=== PATIENT | male | born 1940 | race Caucasian/White ===

== ENCOUNTER 2017-05-16 15:58 | Emergency (ER) | payer MEDICARE, OTHER ==
[2013-11-18 10:44] VITALS: BMI 32.6
[~2017-05-16 15:58] MED LIST: BAYER CHEWABLE81 MG PO; HYDROCODONE-APA1 TAB PO; ISOSORBIDE DINI30 MG PO; MULTI-DAY VITAM1 TAB PO; ZESTORETIC 10/11 TAB PO
== END 2017-05-16 19:00 ==
LOC: D.ER 15:58
DX: M25.551 Pain in right hip (principal); I10 Essential (primary) hypertension; J44.9 Chronic obstructive pulmonary disease, unspecified; Z85.118 Personal history of other malignant neoplasm of bronchus and lung

== ENCOUNTER 2017-05-27 14:49 | Emergency (ER) | payer MEDICARE, OTHER ==
[2013-11-18 10:44] VITALS: BMI 32.6
[2017-05-27 16:01] LABS: BASOPHILS 0.1 % (0-2); EOSINOPHILS 0.5 % (0-7); HEMATOCRIT 44.6 % (42.0-54.0); HEMOGLOBIN 14.9 g/dL (13.5-17.5); IMMATURE GRANULOCYTES 1.6 % (0-5); LYMPHOCYTES 13.9 % (15-50); MCH 29.7 pg (26.0-34.0); MCHC 33.4 g/dL (31.0-37.0); MONOCYTES 9.9 % (2-11); RBC 5.01 10x6/uL (4.20-6.10); RDW 14.9 % (11.5-14.5); WBC 11.1 10x3/uL (4.8-10.8)
[2017-05-27 16:02] LABS: PLATELET COUNT 202 10x3/uL (130-400)
[2017-05-27 16:31] LABS: ALBUMIN 3.2 g/dL (3.4-5.0); ALKALINE PHOSPHATASE 70 U/L (46-116); ALT (SGPT) 30 U/L (10-68); BILIRUBIN - TOTAL 0.48 mg/dL (0.2-1.3); CALC OSMOLALITY 294 mosm/kg (275-300); CALCIUM 8.5 mg/dL (8.5-10.1); CARBON DIOXIDE 25.2 mmol/L (21.0-32.0); CHLORIDE - SERUM 105 mmol/L (98-107); CREATININE - SERUM 1.7 mg/dL (0.6-1.3); GLUCOSE 113 mg/dL (74-106); POTASSIUM - SERUM 4.4 mmol/L (3.5-5.1); PROTEIN - SERUM 6.2 g/dL (6.4-8.2); SODIUM 142 mmol/L (136-145); UREA NITROGEN 44 mg/dL (7-18); eGFR NON AFRICAN AMERICAN 42 mL/min (90-120)
[2017-05-27 16:47] LABS: CHOL - HDL RATIO 4.8 ratio (2.3-4.9); CHOLESTEROL, TOTAL 174 mg/dL (0-200); CKMB 1.8 U/L (0.0-3.6); CREATINE KINASE 52 UL (21-232); HDL CHOLESTEROL 36 mg/dL (32-96); LDL CHOLESTEROL 84 mg/dL (0-100); LDL-HDL RATIO 2.3 ratio (1.5-3.5); PRO BNP 6849 pg/mL (0-450); TRIGLYCERIDE 273 mg/dL (30-200); TROPONIN-I 0.035 ng/mL (0.000-0.060)
== END 2017-05-27 17:35 | disposition home or self-care (01) ==
LOC: D.ER 14:49
PROVIDERS: Emergency Medicine
DX: R07.9 Chest pain, unspecified (principal); I48.91 Unspecified atrial fibrillation; Z87.09 Personal history of other diseases of the respiratory system; Z85.118 Personal history of other malignant neoplasm of bronchus and lung; N28.9 Disorder of kidney and ureter, unspecified

== ENCOUNTER 2017-10-21 18:03 | Inpatient (IN) | payer MEDICARE, OTHER ==
[~2017-10-21] VITALS: Ht 182.9 cm; Wt 117.7 kg
--- NOTE | ~2017-10-21 | OP ---
PATIENT NAME: MISHEL VILLANUEVA MEDICAL RECORD: [id number] :40 LOCATION:D.M2 D.2109 ADMISSION DATE:10/21/17 SURGEON: MARLEE SCHUMACHER MD DATE OF OPERATION: 10/23/2017 DATE OF SERVICE: 10/23/2017 PROCEDURES: 1. Left heart catheterization. 2. Selective coronary angiography. 3. Left ventriculogram. 4. Attempted but failed PTCA stent RCA due to inability to cross the lesion with any wire. DESCRIPTION OF PROCEDURE IN DETAIL: After informed consent was obtained, after detailed description of risks, benefits as well as alternative therapies, the patient elected to proceed with angiogram and angioplasty. The right femoral area was prepped and draped in normal sterile fashion. The right femoral artery was cannulated via modified Seldinger technique with placement of 6-[place] sheath. All catheters exchanged through this sheath. FINDINGS: The left ventriculogram was performed in standard 30-degree JAEGER view, reveals global hypokinesis at all segments. Overall ejection fraction in the 30% range. SELECTIVE CORONARY ANGIOGRAPHY: 1. Left main is with no significant angiographic disease. 2. Left anterior descending has moderate diffuse disease throughout the entire course. 3. Left circumflex has moderate diffuse disease throughout its entire course. 4. Right coronary has aaau-zq-uhdpvune diffuse disease followed by what appears to be a chronic total occlusion in the mid vessel. ATTEMPTED PTCA STENT OF THE RCA: No wire including Choice PT extra support, Fielder, or Shinobi would cross this total occlusion in the mid vessel. OVERALL IMPRESSION: Severe diffuse disease of the left anterior descending and circumflex with chronic total occlusion of the right coronary artery. Medical management of the coronary artery disease, cardiomyopathy and cardiac risk factors. SEPARATE DICTATION DATE OF SERVICE: 10/23/2017 PROCEDURES: 1. Aortofemoral runoff. 2. Abdominal aortography. INDICATION: Claudication and peripheral vascular disease. PROCEDURE IN DETAIL: After informed consent was obtained and after a detailed description of the risks, benefits, as well as alternative therapies, the OPERATIVE REPORT [id number] MISHEL VILLANUEVA patient elected to proceed with aortofemoral runoff. FINDINGS: Abdominal aortography was performed. The catheter was pulled down for aortofemoral runoff. Abdominal aortography reveals no abdominal aortic aneurysm. No abdominal aortic disease, no dissection. RIGHT LEG: A. Iliac: The iliacs are totally occluded. This was replaced with an aortobifemoral graft that is widely patent. B. Femoral system: The deep femoral is widely patent. Superficial femoral was totally occluded in mid vessel. This reconstitutes into the popliteal from collaterals off the deep femoral system. C. Popliteal and infrapopliteal vessels: The popliteal is severely diffusely diseased. It appears that all of her popliteal disease vessels are diffusely diseased, patent only for a very short way, then totally occluded. LEFT LEG: A. Common iliac: The iliac system is closed, is replaced with an aortobifemoral graft that is patent. B. Femoral system: The deep femoral is widely patent. Superficial femoral was totally occluded throughout its entire course. The leg reconstitutes distally off of collaterals from the deep femoral system at the popliteal level. Popliteal appears to be patent for a short time and all the infrapopliteal vessels appear to be totally occluded. Distal leg is perfused by tracheal collaterals. OVERALL IMPRESSION: Wide patency of the aortobifemoral graft, but bilateral severe superficial femoral artery disease and severe infrapopliteal disease that is not amenable to surgical or transcatheter revascularization, only medical management. TRANSINT:[id number] Voice Confirmation ID: [id number] DOCUMENT ID: [id number] MARLEE SCHUMACHER MD at 1741 CC: [id number] DICTATION DATE: 10/23/17 0949 DIALER: 10/23/17 1206 ADM IN [facility] [address] [place] [address]
--- NOTE | ~2017-10-21 | HEMODYNAMI ---
PATIENT:MISHEL VILLANUEVA MEDICAL RECORD: [id number] : 40 LOCATION:[facility] D.2109 ADMISSION DATE: 10/21/17 Generatedon:10/23/20179:44 Patient name: MISHEL VILLANUEVA Patient #: [id number] SSN: : 1940 Date of study: 10/23/2017 Page: Of Hemodynamic Procedure Report Patient Data Patient Demographics Procedure consent was obtained First Name: MISHEL Gender: Male Last Name: RICH : 1940 [facility] Initial: A Age: 77 year(s) Patient #: [id number] Race: Unknown Additional ID: [id number] Contact details Address: [address] [place] [address] State: [place] City: [place] Zip code: [address] Admission Admission Data Admission Date: 10/21/2017 Admission Time: 20:40 Room #: D2109 Procedure Procedure Types Cath Procedure Diagnostic Procedure LHC LH w/Coronaries Sedation Charges Moderate Sedation up to 30 minutes Peripheral Cath Diagnostic Procedure Cath Peripheral Nzwdj-Jfiqidy-Vsl-Off Procedure Description Procedure Date Procedure Date: 10/23/2017 Procedure Start Time: 9:14 Procedure End Time: 9:43 Procedure Staff Name Function Andrew Mann MD Performing Physician Deyanira Deras RT Monitor Raúl Paige RN Nurse Fozia Husain RT Scrub Procedure Data Cath Procedure Fluoroscopy Diagnostic fluoroscopy Total fluoroscopy Time: 9.9 time: 9.9 min min Diagnostic fluoroscopy Total fluoroscopy dose: dose: 2245 mGy 2245 mGy Contrast Material Contrast Material Type Amount (ml) Isovue 300 177 Entry Location Entry Primary Successful Side Size Upsize Upsize Entry Closure Succes sful Closure Location (Fr) 1 (Fr) 2 (Fr) Remarks Device Remarks Femoral Right 5 Fr 6 Fr Exoseal artery Short Estimated blood loss: 5 ml Diagnostic catheters Device Type Used For End Catheter Placement MULTIPACK Pigtail 5 Fr Multi-vessel catheter Angiography MULTIPACK JL 4.0 5Fr Left Coronary catheter Angiography MULTIPACK 3DRC 5Fr Right Coronary catheter Angiography Procedure Complications No complications Procedure Medications Medication Administration Route Dosage Oxygen etCO2 Nasal cannula 2 l/min Heparin Flush Bag added to field 2 bags (1000units/500ml NS) 0.9% NaCl 100 ml/hr Fentanyl I.V. 50 mcg Versed I.V. 1 mg Fentanyl I.V. 50 mcg Versed I.V. 1 mg Fentanyl I.V. 50 mcg Fentanyl I.V. 50 mcg Heparin Bolus I.V. 5000 units Hemodynamics Rest Heart Rate: 93 (bpm) Pressure Samples Time Site Value (mmHg) Purpose Heart Use Rate(bpm) 9:20 LV 100/11,9 Snapshot 94 Snapshots Pre Cath Intra NCS Post Cath Vital Signs Time Heart Resp SPO2 etCO2 NIBP (mmHg) Rhythm Pain Sedation Rate (ipm) (%) (mmHg) Status Level (bpm) 8:21:00 97 17 95 0 137/99(123) NSR 0 (11) 10(A) , No pain 8:25:08 82 18 92 0 124/85(108) NSR 0 (11) 10(A) , No pain 8:29:09 90 17 93 0 125/93(114) NSR 0 (11) 10(A) , No pain 8:32:59 97 18 92 0 102/88(94) NSR 0 (11) 10(A) , No pain 8:36:52 81 17 93 0 122/99(108) NSR 0 (11) 10(A) , No pain 8:40:54 88 18 93 0 123/90(112) NSR 0 (11) 10(A) , No pain 8:44:58 82 18 93 0 112/85(100) NSR 0 (11) 10(A) , No pain 8:48:57 88 17 92 0 123/84(106) NSR 0 (11) 10(A) , No pain 8:52:59 100 19 93 0 111/94(99) NSR 0 (11) 10(A) , No pain 8:56:57 89 18 93 0 121/85(105) NSR 0 (11) 10(A) , No pain 9:00:58 86 18 93 0 118/92(112) NSR 0 (11) 10(A) , No pain 9:04:58 87 17 93 0 126/90(102) NSR 0 (11) 10(A) , No pain 9:09:04 86 21 93 0 140/84(106) NSR 0 (11) 10(A) , No pain 9:13:11 93 13 92 0 117/94(106) NSR 0 (11) 10(A) , No pain 9:17:13 88 18 94 0 126/86(110) NSR 0 (11) 10(A) , No pain 9:21:17 87 16 93 0 124/85(93) NSR 0 (11) 9(A) , No pain 9:25:27 101 18 95 0 114/86(107) NSR 0 (11) 9(A) , No pain 9:29:26 96 17 94 0 132/89(116) NSR 0 (11) 9(A) , No pain 9:33:28 87 18 95 0 143/95(115) NSR 0 (11) 9(A) , No pain 9:38:31 97 18 95 0 156/114(146) NSR 0 (11) 9(A) , No pain 9:43:10 91 26 95 0 165/121(142) NSR 0 (11) 9(A) , No pain Medications Time Medication Route Dose Verified Delivered Reason Notes Effectiveness by by 8:27:11 Oxygen etCO2 2 Andrew Raúl Per physician Nasal l/min Johnathan Paige RN cannula 8:27:19 Heparin Flush added 2 Andrew Raúl used for Bag to bags Johnathan Paige monitor worker (1000units/500ml field NS) 8:27:28 0.9% NaCl 100 Andrew Raúl Per physician ml/hr Johnathan Paige RN 9:04:04 Fentanyl I.V. 50 Andrew Raúl for sedation mcg Johnathan Paige RN 9:04:11 Versed I.V. 1 mg Andrew Raúl for sedation Johnathan Paige RN 9:08:47 Fentanyl I.V. 50 Andrew Raúl for sedation mcg Johnathan Paige RN 9:08:50 Versed I.V. 1 mg Andrew Raúl for sedation Johnathan Paige RN 9:11:44 Fentanyl I.V. 50 Andrew Raúl for sedation mcg Johnathan Paige RN 9:17:55 Fentanyl I.V. 50 Andrew Raúl for sedation mcg Johnathan Paige RN 9:28:45 Heparin Bolus I.V. 5000 Andrew Olsen for units Johnathan Paige RN anticoagulation Procedure Log Time Note 8:03:07 Raúl Paige RN sent for patient. Start room use. 8:07:50 Diagnostic Cath Status : Elective 8:08:08 Time tracking: Regular hours (M-F 7:00 - 5:00) 8:08:12 Plan of Care:Hemodynamics will remain stable., Cardiac rhythm will remain stable., Comfort level will be maintained., Respiratory function will remain adequate., Patient/ family verbilizes understanding of procedure., Procedure tolerated without complication., Recovers from procedure without complications.. 8:19:48 Patient received from PCU to CCL 2 Alert and oriented. Tansferred to table in Supine position. 8:19:53 Warm blankets applied, and selina hugger turned on for patient comfort. 8:19:54 Correct patient and procedure confirmed by team. 8:19:56 Signed procedure consent form obtained from patient. 8:19:57 ECG and BP/O2 sat monitors applied to patient. 8:19:58 Vital chart was started 8:20:03 Baseline sample Acquired. 8:20:27 Rhythm: atrial fibrillation 8:20:33 Full Disclosure recording started 8:20:54 H&P Date Dictated: 10/21/2017 Within 30 days and on chart.. 8:20:57 Pre-procedure instructions explained to patient. 8:20:58 Pre-op teaching completed and patient verbalized understanding. 8:21:01 Family in waiting room. 8:21:03 Patient NPO since Midnight. 8:24:48 Is the patient allergic to Iodine/contrast media? Yes. 8:24:49 Was the patient premedicated? Yes 8:24:51 Is patient on blood thinner?Yes 8:24:54 ACC The patient was administered the following blood thiners within the last 24 hours: ACCPlavix 8:24:58 Patient diabetic? No. 8:25:00 Previous problem with sedation/anesthesia? No ? 8:25:04 Snore? Yes 8:25:05 Sleep apnea? No 8:25:06 Deviated septum? No 8:25:07 Opens mouth fully? Yes 8:25:08 Sticks out tongue? Yes 8:25:14 Airway obstruction? Yes copd 8:25:19 Dentures? No ? 8:25:41 Pre procedure: right dorsailis pedis pulse 2+ Normal; easily identifiable; not easily obliterated 8:25:43 Pre procedure: left dorsailis pedis pulse 2+ Normal; easily identifiable; not easily obliterated 8:25:53 IV patent on arrival in right hand with 0.9% NaCl at [facility]. 8:25:56 Lab results completed and on chart. 8:26:27 Right groin area was prepped with chlora-prep and draped in sterile fashion 8::28 Alarms reviewed by R. N. 8:26:29 Sharps counted by scrub and verified by R.N. 8:27:11 Oxygen 2 l/min etCO2 Nasal cannula was administered by Raúl Paige RN; Per physician; 8:27:19 Heparin Flush Bag (1000units/500ml NS) 2 bags added to field was administered by Raúl Paige RN; used for procedure; 8:27:28 0.9% NaCl 100 ml/hr was administered by Raúl Paige RN; Per physician; 8:36:42 Zero performed for pressure channel P1 9:03:48 Physician arrived 9:03:49 --------ALL STOP TIME OUT------ 9:03:49 Final Timeout: patient, procedure, and site verified with staff and physician. All members of the team are in agreement. 9:03:51 Right groin site verified by team. 9:03:53 Physical assessment completed. ASA score P 2 - A patient with mild systemic disease as per Andrew Mann MD. 9:03:59 Sedation plan: IV Moderate Sedation Medication:Versed, Fentanyl 9:04:03 Use device set Femoral Dx 9:04:04 Fentanyl 50 mcg I.V. was administered by Raúl Paige RN; for sedation; 9:04:04 ACIST Syringe (30142) opened to sterile field. 9:04:04 Bag Decanter () opened to sterile field. 9:04:04 Medline Cath Pack ([id number]) opened to sterile field. 9:04:05 DIAGNOSTIC WIRE .035 260cm J wire ([id number]) opened to sterile field. 9:04:06 ACIST Hand Control (69386) opened to sterile field. 9:04:07 ACIST Manifold (00181) opened to sterile field. 9:04:07 DIAGNOSTIC Multipack 5Fr catheter set (YI3100) opened to sterile field. 9:04:07 Tegaderm 4 x 4 (1626W) opened to sterile field. 9:04:09 SHEATH Prelude 5Fr 0.035 (INX-4I-31-035) opened to sterile field. 9:04:11 Versed 1 mg I.V. was administered by Raúl Paige RN; for sedation; 9:08:47 Fentanyl 50 mcg I.V. was administered by Raúl Paige RN; for sedation; 9:08:50 Versed 1 mg I.V. was administered by Raúl Paige RN; for sedation; 9:11:44 Fentanyl 50 mcg I.V. was administered by Raúl Paige RN; for sedation; 9:13:51 Procedure started. 9:14:02 Local anesthetic to right femoral artery with Lidocaine 2% by Andrew Mann MD.INITIAL ACCESS ONLY 9:17:55 Fentanyl 50 mcg I.V. was administered by Raúl Paige RN; for sedation; 9:18:31 A 5 Fr sheath was inserted into the Right Femoral artery 9:19:11 Procedure type changed to Cath procedure, Diagnostic procedure, LHC, LHC w/Coronaries, Sedation Charges, Moderate Sedation up to 30 minutes, Peripheral Cath Diagnostic Procedure, Cath Peripheral, Osgny-Ssferrl-Xji-Off 9:19:21 A MULTIPACK Pigtail 5 Fr catheter was advanced over the wire and used for Multi-vessel Angiography. 9:20:14 LV hemodynamics recorded. 9:20:16 LV gram done using JAEGER 9:20:20 Injector settings: Ml/sec: 5, Volume: 15, 9:20:31 EF : 30 % 9:22:42 Catheter removed. 9:22:52 A MULTIPACK JL 4.0 5Fr catheter was advanced over the wire and used for Left Coronary Angiography. 9:23:39 LCA angiography performed. 9:23:53 Injector settings: Ml/sec: 3, Volume: 6, 9:25:04 Catheter removed. 9:25:40 A MULTIPACK 3DRC 5Fr catheter was advanced over the wire and used for Right Coronary Angiography. 9:26:12 RCA angiography performed. 9:26:16 Injector settings: Ml/sec: 3, Volume: 6, 9:26:40 Catheter removed. 9::44 Proceeding to intervention. 9:27:33 SHEATH 6Fr Prelude ([id number]) opened to sterile field. 9:27:33 CHOICE PT Extra Support 182cm wire ([id number]) opened to sterile field. 9:27:34 INFLATOR Merit BasixCompak (AS6915) opened to sterile field. 9:27:35 GUIDE 6FR AR 2.0 SH catheter ([id number]) opened to sterile field. 9:28:37 Sheath upsized to a 6 Fr Short. 9:28:44 6 Fr ar 2 sh guide catheter was inserted over the wire 9:28:45 Heparin Bolus 5000 units I.V. was administered by Raúl Paige RN; for anticoagulation; 9:28:57 choice pt wire advanced. 9:30:54 Wire removed. 9:31:20 FIELDER XT J 300cm guide wire ([id number]) opened to sterile field. 9:31:40 fielder wire advanced. 9:36:38 Wire removed. 9:36:48 SHINOBI 300cm 0.014 guide wire (528493F) opened to sterile field. 9:39:06 The EMERGE OTW 1.5 x 20 balloon ([id number]) was advanced and then removed because of failure to cross lesion 9:39:08 Wire removed. 9:39:16 EXOSEAL 6Fr (EX600) opened to sterile field. 9:39:26 Sheath removed intact; hemostasis achieved with Exoseal to the Right Femoral artery. 9:39:27 Procedure ended.(Physican Out) 9:41:06 Fluoroscopy time 09.90 minutes. 9:41:13 Fluoroscopy dose: 2245 mGy 9:41:13 Flurop Dose total: 2245 9:41:38 Contrast amount:Isovue 300 177ml. 9:41:39 Sharps counted by scrub and verified by R.N. 9:42:35 Insertion/operative site no bleeding no hematoma. 9:42:38 Post-op/insertion site Right Femoral artery dressed using a 4 x 4 and Tegaderm. 9:42:41 Post right femoral artery:stable 9:42:43 Post Procedure Pulses reassessed and unchanged 9:42:45 Post procedure rhythm: unchanged. 9:42:48 Estimated blood loss: 5 ml 9:42:49 Post procedure instruction explained to patient.Patient verbalizes understanding. 9:42:50 Patient needs reinforcement of post procedure teaching. 9:42:50 Procedure and supply charges have been captured, reviewed, submitted and are correct. 9:42:55 Procedure Complication : No complications 9:42:58 Vital chart was stopped 9:42:58 See physician's report for complete and final results. 9:43:01 Report given to [facility]. 9:43:07 Patient transfered to [facility] with Stretcher. 9:43:09 Procedure ended. 9:43:09 Full Disclosure recording stopped 9:43:14 End room use (Document Last) Intervention Summary Intervention Notes Time ActionType Lesion and Equipment Action# Pressure Duration Attributes Used 9:39:06 Discard EMERGE OTW Balloon 1.5 x 20 balloon ([id number]) Device Usage Item Name Manufacture Quantity Catalog Number Hospital Part Current Minimal Lot# / Charge Number Stock Stock Serial# Code ACIST Syringe Acist 1 15213 [id number] 20 (63234) Medical Systems Inc Bag Decanter Microtek 1 2001S 477382 50582 [id number] 5 (2001S) Medical Inc. Medline Cath Cardinal 1 [id number] 429783 71237 827467 5 Pack Health ([id number]) DIAGNOSTIC WIRE [facility] Marvin 1 362783 483699 400752 028429 30 .035 260cm J wire (335851) ACIST Hand Acist 1 43204 842559 318222 560508 5 Control (12351) Medical Systems Inc ACIST Manifold Acist 1 01149 687871 868353 913453 5 (99852) [employer] Systems Inc DIAGNOSTIC Cardinal 1 QB4369 629255 46023 570108 30 Multipack 5Fr Health catheter set (HS3512) Tegaderm 4 x 4 3M 1 1626W 780616 112672 083055 5 (1626W) SHEATH Prelude Merit 1 WQG-0U-51-035 610999 966283 375430 5 5Fr 0.035 Medical ([id number]) MULTIPACK Cardinal 1 021026 5 Pigtail 5 Fr Health catheter MULTIPACK JL Cardinal 1 196028 5 4.0 5Fr Health catheter MULTIPACK 3DRC Cardinal 1 119005 5 5Fr catheter Health SHEATH 6Fr Merit 1 [id number] 757815 975578 719041 5 Prelude Medical ([id number]) CHOICE PT Extra [place] 1 [id number] 665868 816298 619700 5 Support 182cm Scientific wire ([id number]) INFLATOR Merit Merit 1 PZ3374 133439 473117 279133 15 [facility] (CR8223) GUIDE 6FR AR Medtronic 1 [id number] 120632 29871 236317 1 2.0 SH catheter ([id number]) FIELDER XT J Pollrad 1 [id number] 299743 286947 523231 5 300cm guide Vascular wire ([id number]) SHINOBI 300cm Cardinal 1 [id number] 287843 340221 634564 1 0.014 guide Health wire ([id number]) EMERGE OTW 1.5 [place] 1 [id number] 299983 982311 826279 5 [id number] x 20 balloon Scientific ([id number]) EXOSEAL 6Fr Cardinal 1 EX600 664954 224370 018719 10 (EX600) Health Signature Audit [place] Stage Time Signature Unsigned Intra-Procedure 10/23/2017 Deyanira Deras 9:44:41 AM RT(R) Signatures Monitor : Deyanira Deras RT Signature : Date : Time : [address] [place] [address]
--- NOTE | ~2017-10-21 | DS ---
PATIENT:MISHEL VILLANUEVA :40 MEDICAL RECORD: [id number] DISCHARGE SUMMARY ADMISSION DATE: 10/21/17 DISCHARGE DATE: 10/27/17 DATE OF DISCHARGE: 10/27/2017. DIAGNOSES: 1. Angina. 2. Coronary artery disease. 3. Bronchitis. 4. COPD. 5. Hypertension. HOSPITAL COURSE: Mr. Villanueva presents with anginal symptomatology. He has a chronic total occlusion of the RCA that could not be traversed with any wire. He was treated medically with increased Imdur, had no further anginal symptomatology. He as well has COPD and had a bronchitis. This was treated with Augmentin. He was discharged to rehab unit. Further care depends upon his progress at the rehabilitation unit. TRANSINT:[id number] Voice Confirmation ID: [id number] DOCUMENT ID: [id number] MARLEE SCHUMACHER MD at 1101 CC: [id number] DICTATION DATE: 10/27/17 1349 VOCATIONAL REHABILITATION ADMINISTRATOR: 10/27/17 1526 DIS IN 10/27/17 [address] [place] [address]
--- NOTE | ~2017-10-21 | HP ---
PATIENT: MISHEL VILLANUEVA MEDICAL RECORD: [id number] ACCOUNT: [id number] LOCATION:[address] : 40 ADMISSION DATE: 10/21/17 HISTORY AND PHYSICAL EXAMINATION DIAGNOSES: 1. Unstable angina. 2. Atrial fibrillation, chronic. 3. Coronary artery disease. 4. Previous percutaneous transluminal coronary angioplasty stent. 5. IODINE ALLERGY. 6. Hypertension. 7. Hyperlipidemia. HISTORY OF PRESENT ILLNESS: Mr. Villanueva presents with anginal symptomatology times 2 days. He has a past history of cardiac stenting in 2008. His EKG shows ST-T changes laterally. He has atrial fibrillation, which is chronic, but he is not on anticoagulation. REVIEW OF SYSTEMS: The patient reports easy bruising but reports no swollen glands. The patient reports no fever, no night sweats, no significant weight gain, no significant weight loss. No significant exercise tolerance. The patient reports no dry eyes, no irritation, no vision change. Patient reports no difficulty hearing and no ear pain. Patient reports no frequent nose bleeds or nose and sinus problems. Patient reports on arm pain on exertion. No shortness of breath while lying down. No history of heart murmur. Patient reports no cough, no wheezing or coughing up blood. Patient reports no abdominal pain, no vomiting. Normal appetite. No diarrhea and not vomiting blood. No nausea and no constipation. Patient reports no incontinence. No difficulty urinating. No hematuria. No increased frequency. Patient reports no muscle aches. No weakness, no arthralgias, no back pain. No swelling of the extremities. Patient reports no abnormal mole, no jaundice, no rashes. Reports no loss of consciousness. No weakness and no numbness. No seizures, dizziness, or headaches. The patient reports no depression, no sleep disturbance, feeling safe in a relationship and no alcohol abuse. Patient reports on fatigue. Reports no runny nose or sinus pressure. No itching, no hives, and no frequent sneezing. PHYSICAL EXAMINATION: GENERAL APPEARANCE: Well-nourished, well-developed, appears stated age. Level of distress, comfortable. PSYCHIATRIC: Mental status, alert, normal affect. Orientation, oriented to time, place and person. EYES: Lids and conjunctiva, noninjected. No discharge, no pallor. ENT: Lips, teeth, gums, normal dentition. Oropharynx, no cyanosis, no pallor. NECK: Carotid arteries, bilateral normal upstroke, no bruits, no thrills. JUGULAR VEINS: No jugular venous pressure or distention. CERVICAL LYMPH NODES: Nontender, nonenlarged. THYROID: Not enlarged. Nontender. No nodules. LUNGS: Respiratory effort, unlabored. CHEST: Normal curvature. No thoracic deformity. No chest wall tenderness. Percussion, resonant. Auscultation, clear. No wheezes, no rales, no rhonchi. CARDIOVASCULAR: Precordial exam, nondisplaced. No heaves or pericardial thrills. Rate and rhythm, regular. Heart sounds, normal S1, normal S2. No S3, no gallop, no rub. Systolic murmur, not heard. Diastolic murmur, not heard. HISTORY AND PHYSICAL [id number] MISHEL VILLANUEVA EXTREMITIES: No cyanosis, no edema. Peripheral pulses, full and equal in all extremities, except as noted. No bruits appreciated. ABDOMEN: Soft, nondistended. Normal aorta. No bruit. Nontender. No masses. Liver, nontender, no hepatomegaly. Spleen, nontender, no splenomegaly. MUSCULOSKELETAL: No joint tenderness. No joint swelling. No erythema. NEUROLOGICAL: Normal gait, normal strength, normal tone. SKIN: Warm and dry. OVERALL IMPRESSION: Unstable angina with abnormal ECG, most likely he has recurrent hemodynamically significant coronary artery disease. We will load him on Plavix and aspirin, treat him with prednisone for his contrast allergy. Proceed with coronary angiography in the a.m. TRANSINT:[id number] Voice Confirmation ID: [id number] DOCUMENT ID: [id number] MARLEE SCHUMACHER MD at 1741 CC: [id number] DICTATION DATE: 10/22/[address] ROAD GRADER OPERATOR: 10/22/17 1142 ADM IN [facility] [address] [place] [address]
[2017-10-21 18:54] LABS: BASOPHILS 0.2 % (0-2); EOSINOPHILS 1.5 % (0-7); HEMATOCRIT 42.6 % (42.0-54.0); HEMOGLOBIN 13.7 g/dL (13.5-17.5); IMMATURE GRANULOCYTES 0.3 % (0-5); LYMPHOCYTES 10.5 % (15-50); MCHC 32.2 g/dL (31.0-37.0); MCV 93.2 fL (80.0-100.0); MEAN PLATELET VOLUME 9.6 fL (7.4-10.4); MONOCYTES 8.8 % (2-11); NEUTROPHILS 78.7 % (40-80); PLATELET COUNT 143 10x3/uL (130-400); RBC 4.57 10x6/uL (4.20-6.10); RDW 13.7 % (11.5-14.5); WBC 8.8 10x3/uL (4.8-10.8)
[2017-10-21 19:00] LABS: ALBUMIN 3.5 g/dL (3.4-5.0); ALKALINE PHOSPHATASE 86 U/L (46-116); ALT (SGPT) 16 U/L (10-68); BILIRUBIN - TOTAL 0.58 mg/dL (0.2-1.3); CALC OSMOLALITY 294 mosm/kg (275-300); CARBON DIOXIDE 27.9 mmol/L (21.0-32.0); CHLORIDE - SERUM 106 mmol/L (98-107); CREATININE - SERUM 1.5 mg/dL (0.6-1.3); GLUCOSE 94 mg/dL (74-106); POTASSIUM - SERUM 4.7 mmol/L (3.5-5.1); PROTEIN - SERUM 6.9 g/dL (6.4-8.2); SODIUM 146 mmol/L (136-145); UREA NITROGEN 25 mg/dL (7-18); eGFR NON AFRICAN AMERICAN 48 mL/min (90-120)
[2017-10-21 19:03] LABS: CREATINE KINASE 135 UL (21-232); TROPONIN-I < 0.017 ng/mL (0.000-0.060)
[2017-10-21 19:58] VITALS: BP 120/85
[2017-10-21 20:23] VITALS: BP 167/98
[2017-10-21 20:32] VITALS: BP 147/93
[2017-10-22 00:16] VITALS: BP 126/75
[2017-10-22 00:51] VITALS: BP 157/79; BMI 33.5
[2017-10-22 05:47] VITALS: BP 124/60
[2017-10-22 06:26] LABS: BASOPHILS 0.3 % (0-2); EOSINOPHILS 0.4 % (0-7); HEMATOCRIT 41.9 % (42.0-54.0); HEMOGLOBIN 13.4 g/dL (13.5-17.5); IMMATURE GRANULOCYTES 0.3 % (0-5); LYMPHOCYTES 10.6 % (15-50); MCH 29.6 pg (26.0-34.0); MCV 92.7 fL (80.0-100.0); MONOCYTES 9.2 % (2-11); NEUTROPHILS 79.2 % (40-80); RBC 4.52 10x6/uL (4.20-6.10); RDW 13.8 % (11.5-14.5)
[2017-10-22 06:28] LABS: PLATELET COUNT 229 10x3/uL (130-400); WBC 11.4 10x3/uL (4.8-10.8)
[2017-10-22 06:36] LABS: INR 1.11 (0.85-1.17); PROTIME 13.9 SECONDS (11.6-15.0)
[2017-10-22 06:47] LABS: ANION GAP 12.2 mmol/L (8-16); CALCIUM 8.6 mg/dL (8.5-10.1); CARBON DIOXIDE 25.3 mmol/L (21.0-32.0); CREATININE - SERUM 1.7 mg/dL (0.6-1.3); POTASSIUM - SERUM 4.5 mmol/L (3.5-5.1)
[2017-10-22 08:41] VITALS: BP 121/73
[2017-10-22 16:20] VITALS: BP 105/61
[2017-10-22 20:00] VITALS: BP 137/80
[2017-10-23 00:08] VITALS: BP 174/99
[2017-10-23 04:00] VITALS: BP 147/84
[2017-10-23 10:41] VITALS: Ht 182.9 cm; Wt 117.7 kg
[2017-10-23 11:44] VITALS: BP 148/107
[2017-10-23 15:32] VITALS: BP 143/86
[2017-10-23 21:28] VITALS: BP 143/85
[2017-10-24 00:18] VITALS: BP 112/69
[2017-10-24 06:07] VITALS: BP 126/78
[2017-10-24 08:21] VITALS: BP 142/86
[2017-10-24 12:08] VITALS: BP 117/77
[2017-10-24 15:57] VITALS: BP 139/76
[2017-10-24 21:08] VITALS: BP 130/83
[2017-10-25 01:35] VITALS: BP 161/95
[2017-10-25 05:29] VITALS: BP 132/89
[2017-10-25 08:46] VITALS: BP 162/48
[2017-10-25 12:17] VITALS: BP 157/89
[2017-10-25 16:25] VITALS: BP 181/90
[2017-10-25 21:01] VITALS: BP 127/80
[2017-10-26 01:29] VITALS: BP 163/89
[2017-10-26 05:09] VITALS: BP 184/91
[2017-10-26 08:48] VITALS: BP 138/82
[2017-10-26 10:48] VITALS: BP 132/77
[2017-10-26 15:41] VITALS: BP 141/84
[2017-10-27 01:00] VITALS: BP 166/65
[2017-10-27 05:59] VITALS: BP 173/83
[2017-10-27 07:53] VITALS: BP 176/82
[2017-10-27 12:02] VITALS: BP 173/94
== END 2017-10-27 17:00 | DRG 251 ==
LOC: D.ER 18:03 → D.EDHOLD 20:40 → D.M2 20:40
PROVIDERS: Emergency Medicine; Family Medicine; Internal Medicine Interventional Cardiology
PROC: B2151ZZ Fluoroscopy of Left Heart using Low Osmolar Contrast (ICD-10-PCS; 2017-10-23)
PROC: B4101ZZ Fluoroscopy of Abdominal Aorta using Low Osmolar Contrast (ICD-10-PCS; 2017-10-23)
PROC: 02703ZZ Dilation of Coronary Artery, One Artery, Percutaneous Approach (ICD-10-PCS; principal; 2017-10-23 09:47)
PROC: 4A023N7 Measurement of Cardiac Sampling and Pressure, Left Heart, Percutaneous Approach (ICD-10-PCS; 2017-10-23 09:47)
PROC: B2111ZZ Fluoroscopy of Multiple Coronary Arteries using Low Osmolar Contrast (ICD-10-PCS; 2017-10-23 09:47)
DX: I25.110 Atherosclerotic heart disease of native coronary artery with unstable angina pectoris (principal); I10 Essential (primary) hypertension; E78.5 Hyperlipidemia, unspecified; I48.2 Chronic atrial fibrillation; R94.31 Abnormal electrocardiogram [ECG] [EKG]; J40 Bronchitis, not specified as acute or chronic; I73.9 Peripheral vascular disease, unspecified; I25.82 Chronic total occlusion of coronary artery; J44.9 Chronic obstructive pulmonary disease, unspecified; Z95.5 Presence of coronary angioplasty implant and graft

== ENCOUNTER 2017-10-27 16:36 | Inpatient (IN) | payer MEDICARE, OTHER ==
[~2017-10-27] VITALS: Ht 182.9 cm; Wt 116.6 kg
--- NOTE | ~2017-10-27 | RHP ---
PATIENT: MISHEL VILLANUEVA MEDICAL RECORD: [id number] ACCOUNT: [id number] LOCATION:[id number] : 40 ADMISSION DATE: 10/27/17 REHABILITATION HISTORY AND PHYSICAL EXAMINATION POST ADMISSION PHYSICIAN EXAMINATION POST-ADMISSION PHYSICAL EXAMINATION AND HISTORY AND PHYSICAL DATE OF ADMISSION: 10/27/2017 ADMITTING DIAGNOSIS: Complications post cardiac cath with debility. HISTORY OF PRESENT ILLNESS: The patient admitted to the inpatient rehab for debility secondary to post cardiac cath with complications with bleeding out of his groin, scrotum, and penis area with increased pain and causing difficulty with mobility and self-care. He has increased weakness secondary to his extended hospitalization. He is not getting up and out of bed. He is more on pain medication, now a sling to wear to assist with elevation of scrotum and penis. He presented to [facility] on 10/21 with anginal-type symptomatology. His past medical history includes cardiac stent. His EKG showed ST-T wave changes. He has chronic AFib, but has had no anticoagulation therapy. He has had post cardiac cath bleeding that has settled in his groin. It has caused increasing pain and decreased mobility. He is on home O2 at 2 liters via nasal cannula. He is currently on 3 liters at this time. He is on telemetry. He lives at home with his nephew. He is moderately independent with the use of a cane and rolling walker only at times. He was independent with his ADLs prior to hospitalization. He is currently set up for mod assist for his ADLs and mod assist to total assist for mobility. Only able to ambulate 4 feet at this time. He would like to return home with his nephew at his prior level of functioning or better if possible. Comorbidities in this patient include unstable angina, atrial fib, coronary artery disease, previous percutaneous transluminal coronary artery angioplasty, hypertension, hyperlipidemia, pain, and scrotal, groin, and penile swelling. PAST MEDICAL HISTORY: Significant for hypertension, coronary artery disease, COPD, lung cancer, tobacco use, and arthritis. PAST SURGICAL HISTORY: Includes angioplasty with stents, appendectomy, bypass in bilateral lower extremities, and hernia repair. ALLERGIES: SULFA, SOAP, AND IODINE. CURRENT MEDICATIONS: Include Zofran 8 mg every 6 hours p.r.n., hydrochlorothiazide 12.5 mg daily, lisinopril 10 mg daily, multivitamin daily, isosorbide 30 mg daily, aspirin chewable 81 mg daily, and hydrocodone 10/325 one to two tabs every 6 hours p.r.n. HABITS: Does have a history of tobacco use. FAMILY HISTORY: Noncontributory. SOCIAL HISTORY: The patient hopes to return back home and get back to his prior level of functioning. REVIEW OF SYSTEMS: HISTORY AND PHYSICAL [id number] [place] A GENERAL: Does complain of weakness and fatigue. HEENT: Denies cold, cough, or congestion. CARDIOVASCULAR: Denies chest pain. PHYSICAL EXAMINATION: VITAL SIGNS: Stable, afebrile. GENERAL: An obese gentleman, in no acute distress upon exam. HEENT: Normocephalic and atraumatic. Mucosa moist. NECK: Supple. No lymphadenopathy. LUNGS: Clear at this time. HEART: Irregular rate and rhythm. ABDOMEN: Benign. EXTREMITIES: No clubbing, cyanosis or edema. NEUROLOGIC: He does have noted proximal muscle weakness. In groin area, he does have noted swelling, erythema, and painful areas to his groin region. LABORATORY DATA: Admit white count is 6.8, H&H of 12 and 37, and platelet count was 281. His sodium is 140, potassium 4.8, BUN and creatinine of 21 and 1.6, and blood sugar is 105. ASSESSMENT: This is a 77-year-old gentleman admitted to the rehab with a working diagnosis of debility secondary to complications from a cardiac cath. The patient has potential to make improvement. We will institute the following multidisciplinary therapies including, but not limited to physical, occupational, respiratory, speech, nutritional services, prosthetics and orthotics. Given his complex medical condition and risks for more complications, rehabilitation services cannot be provided at a low level of care such as a senior living facility. PLAN: 1. Admit to [facility] for intensive inpatient therapy to include the following disciplines: A. Physical therapy to improve gait, all transfer skills and bed mobility to a modified independent level. B. Occupational therapy to improve activities of daily living to a modified independent level. C. Case management to assist with discharge planning and placement options. D. Nutrition to assist with nutritional needs. E. Rehabilitation nursing to assist in monitoring any type of bowel or bladder habitus. 2. The patient's current medications and medical care will be continued. 3. The patient will be placed on standard fall precautions. 4. The patient's estimated length of stay is approximately 7-10 days. 5. We will follow this patient probably in the a.m., and we will follow up with care team this week. TRANSINT:[id number] Voice Confirmation ID: [id number] DOCUMENT ID: [id number] DENISE notes whether there has been none or any medical/functional change since admission: - NO CHANGE SINCE PRESCREEN. DENISE attests patient continues to be appropriate for IRF: HISTORY AND PHYSICAL [id number] MISHEL VILLANUEVA - CONTINUES TO BE APPROPRIATE. MARCELINO MILLER MD at 2041 CC: [id number] DICTATION DATE: 10/28/17928 AUTOMATION ENGINEER: 10/28/17 1032 ADM IN [address] [id number] [place] [address]
[2017-10-27 17:42] VITALS: BP 185/88; BMI 34.9
[2017-10-27 19:54] VITALS: BP 159/67
[2017-10-28 07:54] VITALS: BP 163/80
[2017-10-28 08:08] LABS: BASOPHILS 0.3 % (0-2); EOSINOPHILS 3.2 % (0-7); HEMATOCRIT 37.4 % (42.0-54.0); IMMATURE GRANULOCYTES 0.3 % (0-5); LYMPHOCYTES 18.6 % (15-50); MCH 29.5 pg (26.0-34.0); MCHC 32.1 g/dL (31.0-37.0); MCV 91.9 fL (80.0-100.0); MEAN PLATELET VOLUME 8.9 fL (7.4-10.4); MONOCYTES 10.5 % (2-11); NEUTROPHILS 67.1 % (40-80); RBC 4.07 10x6/uL (4.20-6.10); RDW 13.4 % (11.5-14.5); WBC 6.8 10x3/uL (4.8-10.8)
[2017-10-28 08:10] LABS: PLATELET COUNT 281 10x3/uL (130-400)
[2017-10-28 08:21] LABS: ANION GAP 9.7 mmol/L (8-16); CALCIUM 9.1 mg/dL (8.5-10.1); CARBON DIOXIDE 29.1 mmol/L (21.0-32.0); CREATININE - SERUM 1.6 mg/dL (0.6-1.3); POTASSIUM - SERUM 4.8 mmol/L (3.5-5.1)
[2017-10-28 20:12] VITALS: BP 113/62
[2017-10-29 13:23] VITALS: BP 111/71
[2017-10-29 20:06] VITALS: BP 147/83
[2017-10-30 06:34] LABS: BASOPHILS 0.3 % (0-2); EOSINOPHILS 3.4 % (0-7); HEMOGLOBIN 12.7 g/dL (13.5-17.5); IMMATURE GRANULOCYTES 0.4 % (0-5); MCH 29.3 pg (26.0-34.0); MCHC 31.8 g/dL (31.0-37.0); MCV 92.4 fL (80.0-100.0); MEAN PLATELET VOLUME 8.9 fL (7.4-10.4); MONOCYTES 13.6 % (2-11); NEUTROPHILS 65.3 % (40-80); PLATELET COUNT 330 10x3/uL (130-400); RBC 4.33 10x6/uL (4.20-6.10); RDW 13.3 % (11.5-14.5); WBC 6.7 10x3/uL (4.8-10.8)
[2017-10-30 06:47] LABS: ANION GAP 8.9 mmol/L (8-16); CARBON DIOXIDE 34.6 mmol/L (21.0-32.0); CREATININE - SERUM 1.8 mg/dL (0.6-1.3); POTASSIUM - SERUM 4.5 mmol/L (3.5-5.1)
[2017-10-30 08:00] VITALS: BP 143/73
[2017-10-30 19:00] VITALS: BP 110/59
[2017-10-31 08:00] VITALS: BP 161/77
[2017-10-31 13:14] VITALS: Ht 182.9 cm; Wt 116.6 kg
[2017-10-31 19:00] VITALS: BP 113/57; BP 135/88
[2017-11-01 07:01] LABS: BASOPHILS 0.4 % (0-2); EOSINOPHILS 3.9 % (0-7); HEMATOCRIT 38.2 % (42.0-54.0); HEMOGLOBIN 12.5 g/dL (13.5-17.5); IMMATURE GRANULOCYTES 0.4 % (0-5); LYMPHOCYTES 20.5 % (15-50); MCH 29.8 pg (26.0-34.0); MCHC 32.7 g/dL (31.0-37.0); MCV 91.2 fL (80.0-100.0); MEAN PLATELET VOLUME 8.9 fL (7.4-10.4); NEUTROPHILS 64.8 % (40-80); PLATELET COUNT 321 10x3/uL (130-400); RBC 4.19 10x6/uL (4.20-6.10); RDW 13.4 % (11.5-14.5); WBC 6.7 10x3/uL (4.8-10.8)
[2017-11-01 07:58] LABS: ANION GAP 10.7 mmol/L (8-16); CALCIUM 8.5 mg/dL (8.5-10.1); CARBON DIOXIDE 29.1 mmol/L (21.0-32.0); CREATININE - SERUM 1.7 mg/dL (0.6-1.3); POTASSIUM - SERUM 4.8 mmol/L (3.5-5.1)
[2017-11-01 08:00] VITALS: BP 111/74
[2017-11-01 19:00] VITALS: BP 115/60
[2017-11-02 08:15] VITALS: BP 135/74
[2017-11-02 19:58] VITALS: BP 112/58
[2017-11-03 06:36] LABS: BASOPHILS 0.8 % (0-2); EOSINOPHILS 3.8 % (0-7); HEMATOCRIT 39.4 % (42.0-54.0); HEMOGLOBIN 12.7 g/dL (13.5-17.5); IMMATURE GRANULOCYTES 0.2 % (0-5); LYMPHOCYTES 17.8 % (15-50); MCH 29.5 pg (26.0-34.0); MCHC 32.2 g/dL (31.0-37.0); MCV 91.4 fL (80.0-100.0); MEAN PLATELET VOLUME 8.7 fL (7.4-10.4); MONOCYTES 11.7 % (2-11); NEUTROPHILS 65.7 % (40-80); PLATELET COUNT 321 10x3/uL (130-400); RBC 4.31 10x6/uL (4.20-6.10); RDW 13.3 % (11.5-14.5); WBC 6.3 10x3/uL (4.8-10.8)
[2017-11-03 06:46] LABS: ANION GAP 11.4 mmol/L (8-16); CALCIUM 8.5 mg/dL (8.5-10.1); CARBON DIOXIDE 26.9 mmol/L (21.0-32.0); CREATININE - SERUM 1.9 mg/dL (0.6-1.3); POTASSIUM - SERUM 4.3 mmol/L (3.5-5.1)
[2017-11-03 08:00] VITALS: BP 133/53
[2017-11-03 19:00] VITALS: BP 114/51
[2017-11-04 09:14] VITALS: BP 155/47
[2017-11-04 20:30] VITALS: BP 139/66
[2017-11-05 08:45] VITALS: BP 167/95
[2017-11-05 19:30] VITALS: BP 131/75
[2017-11-06 06:29] LABS: BASOPHILS 0.8 % (0-2); HEMATOCRIT 41.3 % (42.0-54.0); HEMOGLOBIN 13.3 g/dL (13.5-17.5); IMMATURE GRANULOCYTES 0.3 % (0-5); LYMPHOCYTES 22.7 % (15-50); MCH 29.2 pg (26.0-34.0); MCHC 32.2 g/dL (31.0-37.0); MCV 90.8 fL (80.0-100.0); MEAN PLATELET VOLUME 8.8 fL (7.4-10.4); MONOCYTES 8.9 % (2-11); NEUTROPHILS 63.3 % (40-80); RBC 4.55 10x6/uL (4.20-6.10); RDW 13.3 % (11.5-14.5); WBC 6.2 10x3/uL (4.8-10.8)
[2017-11-06 06:40] LABS: PLATELET COUNT 412 10x3/uL (130-400)
[2017-11-06 07:06] LABS: ANION GAP 12.6 mmol/L (8-16); CALCIUM 8.6 mg/dL (8.5-10.1); CARBON DIOXIDE 29.4 mmol/L (21.0-32.0); CREATININE - SERUM 1.7 mg/dL (0.6-1.3)
[2017-11-06 08:00] VITALS: BP 127/74
[2017-11-06 19:00] VITALS: BP 102/66
[2017-11-07 08:00] VITALS: BP 150/96
[2017-11-07 20:00] VITALS: BP 124/63
[2017-11-08 06:58] LABS: BASOPHILS 0.5 % (0-2); EOSINOPHILS 2.6 % (0-7); HEMOGLOBIN 13.8 g/dL (13.5-17.5); IMMATURE GRANULOCYTES 0.5 % (0-5); LYMPHOCYTES 18.8 % (15-50); MCH 29.5 pg (26.0-34.0); MCHC 32.9 g/dL (31.0-37.0); MCV 89.7 fL (80.0-100.0); MEAN PLATELET VOLUME 8.6 fL (7.4-10.4); NEUTROPHILS 67.6 % (40-80); PLATELET COUNT 406 10x3/uL (130-400); RBC 4.68 10x6/uL (4.20-6.10); RDW 13.5 % (11.5-14.5); WBC 6.2 10x3/uL (4.8-10.8)
[2017-11-08 07:26] LABS: ANION GAP 11.7 mmol/L (8-16); CALCIUM 8.8 mg/dL (8.5-10.1); CARBON DIOXIDE 31.6 mmol/L (21.0-32.0); CREATININE - SERUM 1.7 mg/dL (0.6-1.3); POTASSIUM - SERUM 4.3 mmol/L (3.5-5.1)
[2017-11-08 08:00] VITALS: BP 144/88
[2017-11-08 19:00] VITALS: BP 106/57
[2017-11-09 08:00] VITALS: BP 147/83
[2017-11-09] MEDS ORDERED: HYDROCODONE-APA1 TAB PO (08:54)
== END 2017-11-09 10:50 | disposition home health service (06) | DRG 920 ==
LOC: D.REHAB 16:36
PROVIDERS: Emergency Medicine
DX: I97.610 Postprocedural hemorrhage of a circulatory system organ or structure following a cardiac catheterization (principal); I25.110 Atherosclerotic heart disease of native coronary artery with unstable angina pectoris; R53.81 Other malaise; I48.2 Chronic atrial fibrillation; I10 Essential (primary) hypertension; E78.5 Hyperlipidemia, unspecified; N50.89 Other specified disorders of the male genital organs; Y84.0 Cardiac catheterization as the cause of abnormal reaction of the patient, or of later complication, without mention of misadventure at the time of the procedure; Z95.5 Presence of coronary angioplasty implant and graft; Z88.8 Allergy status to other drugs, medicaments and biological substances